=== PATIENT | female | born 1965 | race Caucasian/White ===

== ENCOUNTER 2017-01-15 15:59 | Emergency (ER) | payer OTHER ==
[~2017-01-15] VITALS: Ht 162.6 cm; Wt 80.2 kg
[~2017-01-15 15:59] MED LIST: FLUO20SO3 PO; LORA-474 PO; VITATAB25 PO
[2017-01-15 16:07] VITALS: BP 126/79; PULSE 78; RESP 16; TEMP 99; O2SAT 93
[2017-01-15] MEDS ORDERED: KETOROLAC TROMETHAMINE 60 MG/2 ML (IM) VIAL IM ONE (17:30)
[2017-01-15] MEDS ORDERED: ORPHENADRINE INJ 60 MG/2 ML AMP IM ONE (17:30)
[2017-01-15] MEDS ORDERED: CYCL1TAB29 PO (18:00)
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
== END 2017-01-15 18:19 | disposition home or self-care (01) ==
LOC: PHEFT 15:59
DX: S29.012A Strain of muscle and tendon of back wall of thorax, initial encounter (principal); M62.838 Other muscle spasm; M54.2 Cervicalgia; F17.200 Nicotine dependence, unspecified, uncomplicated; Z85.42 Personal history of malignant neoplasm of other parts of uterus; V89.0XXA Person injured in unspecified motor-vehicle accident, nontraffic, initial encounter; Y92.481 Parking lot as the place of occurrence of the external cause
CPT/HCPCS: 96372; 99284; J1885; J2360